=== PATIENT | female | born 1970 | race Caucasian/White ===

== ENCOUNTER 2016-11-11 09:25 | Emergency (ER) | payer SELFPAY ==
[~2016-11-11] VITALS: Ht 167.6 cm; Wt 100.0 kg
[~2016-11-11 09:25] MED LIST: ATORVASTATIN CA10 MG PO; GABAPENTIN300 MG PO; HYDROCHLOROT25 MG PO; HYDROXYZ HCL25 MG PO; LEXAPRO10 MG PO; LOSARTAN/HCT1 TA2 PO; METFORMIN500 MG PO; ONDANSETRON HCL4 MG PO; PRILOSEC20 MG PO; ROPINIROLE0.5 MG PO; STERAPRED DS10 MG PO; VITAMIN D5000 UNIT PO
[2016-11-11 10:10] LABS: HEMATOCRIT 43.5 % (37.0-47.0); HEMOGLOBIN 15.2 g/dl (12.0-16.0); IMMATURE GRANULOCYTES 1.2 % (0.0-1.0); MEAN CELL VOLUME 81.5 fL CALC (80.0-100.0); MEAN CORPUSCULAR HGB 28.5 pG CALC (26.0-32.0); MEAN CORPUSCULAR HGB CONC 34.9 g/L CALC (32.0-36.0); NEUT# 6.94 thou/uL (2.00-7.15); RED BLOOD COUNT 5.34 mill/uL (4.20-5.60); RED CELL DISTRI WIDTH 13.2 % (11.5-15.5)
[2016-11-11 10:21] LABS: ALBUMIN 4.3 g/dL (3.2-5.0); ALKALINE PHOSPHATASE 93 u/l (38-126); AMYLASE < 30 u/l (30-110); ANION GAP 18 (6-22 (CALC)); BILIRUBIN, TOTAL 0.7 mg/dL (0.0-1.4); BUN 12 mg/dL (7-17); BUN/CREATININE RATIO 22 (12-20 (CALC)); CALCIUM 10.1 mg/dL (8.4-10.2); CARBON DIOXIDE 21 mmol/l (22-30); CHLORIDE 101 mmol/l (95-108); CREATININE 0.6 mg/dL (0.5-1.0); GFR > 60 ML/MIN (>=60 (CALC)); GFR FOR AFR.AMER. > 60 ML/MIN (>=60 (CALC)); GLUCOSE 310 mg/dL (65-105); LIPASE 68 u/l (23-300); POTASSIUM 4.2 mmol/l (3.5-5.1); SGOT/AST 23 u/l (14-36); SGPT/ALT 41 u/l (9-52); SODIUM 136 mmol/l (137-146); TOTAL PROTEIN 7.4 g/dL (6.3-8.2)
[2016-11-11 10:33] LABS: MYOGLOBIN 13 ng/mL (0 - 62)
[2016-11-11] MEDS ORDERED: CLINDAMYCIN300 M1 PO (13:03)
[2016-11-11] MEDS ORDERED: NEXIUM40 M1 PO (13:03)
[2016-11-11] MEDS ORDERED: ZOFRAN ODT4 MG PO (13:55)
[2016-11-11] MEDS ORDERED: TRAMADOL HYDROC50 MG PO (13:55)
[2016-11-11 14:00] VITALS: BP 133/84
== END 2016-11-11 14:00 | disposition left against medical advice (07) | DRG 313 ==
LOC: ED 09:25
PROVIDERS: Emergency Medicine
DX: R07.9 Chest pain, unspecified (principal); Z91.19 Patient's noncompliance with other medical treatment and regimen
CPT/HCPCS: Q9967; S0164